=== PATIENT | male | born 2005 | race Caucasian/White ===

== ENCOUNTER 2025-10-17 08:05 | Emergency (ER) | payer SELFPAY ==
[~2025-10-17] VITALS: Ht 170.2 cm; Wt 57.0 kg
[2025-10-17 08:08] VITALS: O2SAT 100
[2025-10-17] MEDS: ACETAMINOPHEN 325MG TABLET PO ONE (09:25)
[2025-10-17] MEDS ORDERED: TOPUD MT (10:01)
[2025-10-17 10:22] VITALS: BP 145/82; PULSE 89; RESP 15; TEMP 36.3; O2SAT 100
== END 2025-10-17 10:23 | disposition home or self-care (01) ==
LOC: ER 08:05
DX: S09.90XA Unspecified injury of head, initial encounter (principal); Y09 Assault by unspecified means; Y93.89 Activity, other specified; Y92.89 Other specified places as the place of occurrence of the external cause; Y99.8 Other external cause status
CPT/HCPCS: 70486; 99284